=== PATIENT | male | born 1950 | race Two or more races ===

== ENCOUNTER 2017-03-17 10:30 | Emergency (ER) | payer OTHER ==
[2017-03-17 14:06] LABS: Hematocrit 43.1 % (41.0-53.0); Hemoglobin 14.5 g/dL (13.5-17.5); Mean Corpuscular Hemoglobin 30.4 pg (28.0-32.0); Mean Corpuscular Hgb Conc. 33.5 g/dL (32.0-36.0); Mean Corpuscular Volume 90.7 fL (80.0-100.0); Platelet Count (auto) 124 10^3/uL (140-450); Red Blood Cells 4.75 10^6/uL (4.5-5.90); White Blood Cell 5.4 10^3/uL (4.4-10.8)
[2017-03-17 14:19] LABS: Band Neutrophils % (manual) 0; Basophils % (manual) 0 (0.0-2.0); Blast Cells 0; Eosinophils % (manual) 0 (0-7); Metamyelocytes % 0; Myelocytes % 0; Promyelocytes % 0; Reactive Lymphocytes 0
[2017-03-17 14:23] LABS: Albumin 3.8 g/dL (3.4-5.0); BUN/Creatinine Ratio 12.9; Calcium 8.3 mg/dL (8.5-10.1); Magnesium 2.4 mg/dL (1.6-2.6)
[2017-03-17 14:26] LABS: Total Protein 8.6 g/dL (6.4-8.2)
[2017-03-17 14:51] LABS: Lymphocytes % (manual) 38 (10.0-50.0); Monocytes % (manual) 11 (0-12)
[2017-03-17 14:53] VITALS: BP 133/71
[2017-03-17] MEDS ORDERED: POTASSIUM CHL 10% (20 MEQ/15ML) 15ml ORAL SOLN PO ONE (16:45)
== END 2017-03-17 17:24 | disposition home or self-care (01) ==
LOC: ER 10:41
DX: E11.9 Type 2 diabetes mellitus without complications (principal)
CPT/HCPCS: 36415; 71046; 80053; 83735; 84484; 85007; 85027